=== PATIENT | male | born 1975 | race Caucasian/White ===

== ENCOUNTER 2017-01-30 17:35 | Emergency (ER) | payer OTHER ==
[~2017-01-30] VITALS: Wt 73.5 kg
--- NOTE | 2017-01-30 18:11 | ERD ---
ER Documentation Chief Complaint Chief Complaint pain on inspiration, r. sided torso and back pain when breathing HPI Otherwise healthy 41-year-old male presenting with a chief complaint of pleuritic chest pain worsening over the past 3 days. States that the pain is worse on the right side and in the back. Denies alcohol abuse, recent drug use , similar symptoms in the past, cardiac history, IVDU, fever, chills, nausea, vomiting. Patient has no other complaints and describes no other associated manifestations. Nursing notes have been reviewed and are consistent with history given. ROS All systems reviewed and are negative except as per history of present illness. Physical Exam Vitals Vital Signs Date Time Temp Pulse Resp B/P Pulse Ox O2 Delivery O2 Flow Rate FiO2 01/30/17 17:43 98.1 75 20 130/83 97 Physical Exam Const: 41-year-old male no acute distress Head: Atraumatic Eyes: Normal Conjunctiva. No jaundice. ENT: Normal External Ears, Nose and Mouth. Neck: Full range of motion..~ No meningismus. Resp: Pleuritic chest pain. Percussion unremarkable. Equal expansion bilaterally. Clear to auscultation bilaterally Cardio: Regular rate and rhythm, no murmurs Abd: Mild right upper quadrant tenderness. Negative Zapata sign. No McBurney's point tenderness. Soft, non distended. Normal bowel sounds. Skin: No petechiae or rashes. Back: No midline or flank tenderness Ext: No cyanosis, or edema Neur: Awake and alert Psych: Normal Mood and Affect Result Diagram: 01/30/178 01/30/178 Results 24 hrs Laboratory Tests Test 01/30/17 18:18 White Blood Count 11.110^3/ul Red Blood Count 5.0110^6/ul Hemoglobin 14.8g/dl Hematocrit 43.5% Mean Corpuscular Volume 86.8fl Mean Corpuscular Hemoglobin 29.5pg Mean Corpuscular Hemoglobin Concent 34.0g/dl Red Cell Distribution Width 12.0% Platelet Count 90189^3/UL Mean Platelet Volume 9.6fl Neutrophils % 66.7% Lymphocytes % 20.0% Monocytes % 10.7% Eosinophils % 1.6% Basophils % 0.6% Nucleated Red Blood Cells % 0.0/100WBC Neutrophils # 7.410^3/ul Lymphocytes # 2.210^3/ul Monocytes # 1.210^3/ul Eosinophils # 0.210^3/ul Basophils # 0.110^3/ul Nucleated Red Blood Cells # 0.010^3/ul Prothrombin Time 12.4Sec Prothrombin Time Ratio 1.0 INR International Normalized Ratio 0.92 Activated Partial Thromboplast Time 26.8Sec Sodium Level 142mmol/L Potassium Level 4.4mmol/L Chloride Level 106mmol/L Carbon Dioxide Level 25mmol/L Anion Gap 15 Blood Urea Nitrogen 13mg/dl Creatinine 0.96mg/dl Glucose Level 94mg/dl Calcium Level 9.3mg/dl Total Bilirubin 0.6mg/dl Direct Bilirubin 0.00mg/dl Indirect Bilirubin 0.6mg/dl Aspartate Amino Transf (AST/SGOT) 36IU/L Alanine Aminotransferase (ALT/SGPT) 50IU/L Alkaline Phosphatase 65IU/L Total Protein 5.4g/dl Albumin 4.0g/dl Globulin 1.40g/dl Albumin/Globulin Ratio 2.85 Lipase 48U/L Procedures/MDM Otherwise healthy 41-year-old male presented with a chief complaint of pleuritic chest pain when the right side. Patient states that it radiates to the right back near the shoulder blade. Mild tenderness to palpation in the right upper quadrant. Ultrasound of the gallbladder/liver and labs were obtained. Ultrasound unremarkable. A chest x-ray unremarkable. Labs are largely unremarkable. Most likely diagnosis is costochondritis versus right- sided back pain of unknown etiology. I have no suspicion for ACS, pneumonia, pulmonary embolism, pneumothorax, hemothorax, or other acute cardiopulmonary pathology. I have spoke with the patient regarding their condition and future management. They have verbally responded that they understand their status and treatment plan. The patients vitals are stable, and their current condition is appropriate for discharge. The patient will be given discharge instructions with return precautions. Departure Diagnosis: Primary Impression: Costochondral chest pain Condition: Stable Additional Instructions: Follow up with your PCP within the next 1-3 days for a more thorough evaluation and a possible referral to a specialist. Return the the emergency department immediately if symptoms worsen or change. If you have any questions regarding medications, ask your pharmacist or us before you leave. If any adverse reactions occur while taking your medications, discontinue the treatment and return to the emergency department immediately. Take your medications as directed, and complete the entire course of treatment. ED [facility] PA-C Jan 30, 2017 18:11 ED SANFORD PA-C Jan 30, 2017 18:11
--- NOTE | 2017-01-30 19:12 | RADRPT ---
PROCEDURE: Right upper quadrant ultrasound CLINICAL INDICATION: Abdominal pain TECHNIQUE: Multiple real-time images were acquired of the patient's abdomen and right retroperiton eum utilizing a high resolution transducer. COMPARISON: None FINDINGS: The liver is normal in echogenicity and measures 15.05 cm. No focal hepatic masses are seen. The g allbladder is physiologically distended. There is no evidence of gallstones, gallbladder wall thick ening, or pericholecystic fluid. The intra and extrahepatic bile ducts are normal in caliber. The common bile duct measures 2.5 mm. Midline images demonstrate the pancreas to be normal in echogenicity without obvious inflammatory ch elisha. Pancreatic tail is suboptimally seen. Survey views of the right kidney demonstrate no evidence of hydronephrosis or renal calculi. The ri ght kidney measures 9.1 cm. IMPRESSION: Unremarkable right upper quadrant ultrasound. No evidence of cholelithiasis or acute cholecystitis. . Pancreatic tail is suboptimally seen RPTAT: HH .Emeka Burgos MD, MD Date Time Electronically viewed and signed by .Emeka Burgos MD, on 01/30/2017 19:12 .W/
--- NOTE | 2017-01-30 19:30 | RADRPT ---
PROCEDURE: Chest x-ray CLINICAL INDICATION: Chest pain TECHNIQUE: Chest 2 views COMPARISON: None FINDINGS: The heart is normal in size. The pulmonary vessels are normal in caliber. The lungs are clear. Th e costophrenic angles are sharp. The visualized bony thorax is unremarkable. IMPRESSION: No acute cardiopulmonary disease. RPTAT: HH .Emeka Burgos MD, Date Time Electronically viewed and signed by .Emeka Burgos MD, MD on 01/30/2017 19:29 .W/
== END 2017-01-30 19:42 | disposition home or self-care (01) ==
LOC: FTE 17:35
DX: M94.0 Chondrocostal junction syndrome [Tietze] (principal)
CPT/HCPCS: 36415; 71020; 76705; 80053; 83690; 85025; 85610; 85730; Z7502